=== PATIENT | female | born 1995 | race Caucasian/White ===

== ENCOUNTER 2023-11-29 13:11 | Emergency (ER) | payer BC, SELFPAY ==
--- NOTE | 2023-11-29 13:13 | ED.URI ---
HPI - URI/Sore Throat General Chief Complaint: Upper Respiratory Infection Stated Complaint: SORE THROAT Time Seen by Provider: 11/29/23 14:09 Source: patient and RN notes reviewed Mode of arrival: ambulatory Limitations: no limitations History of Present Illness HPI Narrative: 28-year-old female presents to the [facility] with complaints of a sore throat. Denies fevers. Denies any other symptoms. No treatment prior to arrival Patient states it is worse at night Symptoms for approximately 1 week Related Data Home Medications Medication Instructions Recorded Confirmed sertraline 100 mg tablet 100 mg PO DAILY 11/29/23 11/29/23 spironolactone 100 mg tablet 100 mg PO DAILY 11/29/23 11/29/23 Allergies Allergy/AdvReac Type Severity Reaction Status Date / Time No Known Allergies Allergy Verified 11/29/23 13:24 Review of Systems Review of Systems: All systems reviewed & are unremarkable except as noted in HPI and below Constitutional: Constitutional: Reports no additional constitutional complaints Eyes: Eyes: Reports no additional eye complaints ENT: Reports as per HPI and Reports sore throat Cardiovascular: Cardiovascular: Reports no additional cardiovascular complaints, Denies chest pain and Denies dyspnea Respiratory: Respiratory: Reports no additional respiratory complaints, Denies chest congestion, Denies cough and Denies dyspnea Gastrointestinal: Gastrointestinal: Reports no additional gastrointestinal complaints, Denies abdominal pain, Denies nausea and Denies vomiting Musculoskeletal: Musculoskeletal: Reports no additional musculoskeletal complaints Integumentary/Breasts: Skin/Breast: Reports system reviewed and no additional complaints, except as docu Neurologic: Reports system reviewed and no additional complaints, except as documented Psychiatric: Psychiatric: Reports no additional psychiatric complaints Allergic/Immunologic: Allergic/Immunologic: Reports no additional allergic/immunologic complaints PMFSH Comments At the time of my signature, I reviewed and agree with the nursing past medical, surgical, social, and family history. There is no relevant family history pertinent to the patient complaint. Exam Const: General: cooperative, healthy appearing, comfortable, no acute distress, well developed, alert and well nourished Nutritional Appearance: well nourished Orientation/consciousness: patient oriented x3 Limitations: no limitations HENMT: Head: normal to inspection Ears: hearing grossly normal bilaterally, external ears normal, TM's normal bilaterally, EAC's normal, mastoids normal and no periauricular adenopathy Face/Nose/Sinus: Normal external nose present, Normal nares present, Normal nasal mucous membranes and turbinates present, normal facial exam and face symmetric Face and sinus: normal facial exam and face symmetric Mouth: Yes Normal oral and palatal mucosa present, Yes lip normal and Yes moist mucous membranes Throat: posterior oropharynx normal, uvula midline and no uvular edema Eyes: General: appearance normal, both eyes and all related structures Alignment and Position: alignment normal Periorbital: periorbital findings normal Pupils: Equal, round and reactive pupils present EOM: EOMs intact bilaterally Neck: Neck: normal visual inspection, full ROM, no lymphadenopathy and no meningeal signs Chest: Chest palpation & inspection: normal inspection of the chest Resp: Effort & Inspection: normal respiratory effort and able to speak in complete sentences Auscultation: clear to auscultation bilaterally, no crackles, no rales, no rhonchi and no wheezes Cardio: Rate: regular rate Rhythm: regular rhythm Back/Spine/Pelvis: Cervical Spine: cervical ROM normal Skin: General skin exam: normal color and no rashes or lesions noted Lesions: no lesions Rashes: no rashes Wounds: no wounds Neuro: General: patient oriented x3, gait normal, tone normal, moves all extremities and no meni
[2023-11-29 13:31] VITALS: BP 90/66; PULSE 86; RESP 16; TEMP 37; O2SAT 98
== END 2023-11-29 14:19 | disposition home or self-care (01) ==
PROVIDERS: Emergency Provider Nurse Practitioner
DX: J02.9 Acute pharyngitis, unspecified (principal)
CPT/HCPCS: 87081; 87880; 99213; G0463

== ENCOUNTER 2024-08-25 10:21 | Emergency (ER) | payer BC, SELFPAY ==
--- NOTE | 2024-08-25 10:33 | ED.URI ---
HPI - URI/Sore Throat General Chief Complaint: Upper Respiratory Infection Stated Complaint: Cough Time Seen by Provider: 08/25/24 10:33 Source: patient Mode of arrival: ambulatory Limitations: no limitations History of Present Illness HPI Narrative: 29-year-old female presents with complaint of cough, chest congestion for 1 week. Reports over the past several days she has had chest pain with coughing and shortness of breath with exertion. Afebrile. Reports that her son was diagnosed with pneumonia last week. All systems reviewed and negative except as noted above. Related Data Home Medications Medication Instructions Recorded Confirmed sertraline 100 mg tablet 100 mg PO DAILY 11/29/23 11/29/23 spironolactone 100 mg tablet 100 mg PO DAILY 11/29/23 11/29/23 Allergies Allergy/AdvReac Type Severity Reaction Status Date / Time No Known Allergies Allergy Verified 11/29/23 13:24 Review of Systems Review of Systems: CONSTITUTIONAL: Denies fever, chills, or sweats. EYES: Denies visual changes, redness, or discharge. ENT: Denies rhinorrhea, congestion, sore throat, or otalgia. CARDIOVASCULAR: Denies chest pain, palpitations, or edema. RESPIRATORY: Reports cough, chest congestion, dyspnea with exertion GASTROINTESTINAL: Denies abdominal pain, nausea, vomiting, or diarrhea. GENITOURINARY: Denies dysuria or hematuria. SKIN: Denies rash or itching. MUSCULOSKELETAL: Denies back pain, joint pain, or myalgia. NEUROLOGIC: Denies headache, numbness, or weakness. PSYCHIATRIC: Denies anxiety or depression. All other systems reviewed are negative, except as documented in HPI. PMFSH Comments At time of signature, agree with nursing past medical, surgical, social and family history. There is no relevant family history pertinent to the presenting complaint. Exam Narrative: GENERAL: This is a well-nourished, well-developed patient, in no apparent distress. HEAD: normocephalic, atraumatic. EYES: PERRL. Sclera clear/white. Vision is grossly intact. EARS: External ears normal, auditory canals clear and without drainage, TMs normal without perforation. Hearing grossly intact. NOSE: External nose normal with no obvious nasal discharge, nares without redness, no rhinorrhea. THROAT: Mucous membranes moist, posterior pharynx clear. NECK: Neck supple, non-tender without lymphadenopathy, masses or thyromegaly. CARDIOVASCULAR: Regular rate and rhythm without murmurs, gallops, or rubs. RESPIRATORY: Crackles to left upper lung field otherwise clear. Breath sounds equal bilaterally. No wheezes, rales, or rhonchi. SKIN: warm, Dry, intact with no suspicious lesions or rash, good texture and turgor. NEURO: awake, alert, and oriented to person, place and time. There were no obvious focal neurologic abnormalities. EXTREMITIES: No joint tenderness, effusion, or edema noted. Course Course Level of Care: Express Care Visit Vital Signs Vital signs: Vital Signs Temperature 36.4 C 08/25/24 10:35 Pulse Rate 71 08/25/24 10:35 Respiratory Rate 15 08/25/24 10:35 Blood Pressure 99/83 L 08/25/24 10:35 Pulse Oximetry 99 08/25/24 10:35 Oxygen Delivery Room Air 08/25/24 10:35 Temperature 36.4 C 08/25/24 10:35 Pulse Rate 71 08/25/24 10:35 Respiratory Rate 15 08/25/24 10:35 Blood Pressure 99/83 L 08/25/24 10:35 Pulse Oximetry 99 08/25/24 10:35 Oxygen Delivery Room Air 08/25/24 10:35 Reviewed MDM - URI/Sore Throat MDM Narrative Medical decision making narrative: Will treat patient for pneumonia with antibiotic due to lung sounds auscultation and pneumonia exposure. Patient agrees with plan of care. Patient is aware of diagnosis, understands and agrees to treatment plan. Anticipatory guidance given. Patient agrees to follow-up as directed and is aware of reasons to seek care at the emergency department. Portions of this record may have been created with voice recognition software Differential Diagnosis Differential diagnosis: Likely upper respiratory infection, sinusitis, viral infection and other (Pneumonia exposure) Discharge Plan Discharge Clinical Impression: Cough, Pneumonia exposure Patient Disposition: Home, Self-Care Condition: Stable Instructions: Antibiotic Form, Pneumonia (ED) Additional Instructions: Take medications as prescribed. Taking [id number] medication to treat her symptoms such as Mucinex DM. Take Tylenol or ibuprofen every 6-8 hours as needed for pain and fever. Drink plenty of water and rest. Follow-up your primary care physician if symptoms are not improving. Prescriptions: New azithromycin 250 mg tablet See Rx Instructions .ROUTE .COMPLEX Qty: 6 0RF Rx Instructions: For 250 mg dose pack: take 500 mg today (day 1), then 250 mg for 4 days (days 2-5) No Action spironolactone 100 mg tablet 100 mg PO DAILY sertraline 100 mg tablet 100 mg PO DAILY Follow-up/Referrals: PHYSICIAN,[employer]IN[employer] [Primary Care Provider] - Time of Disposition: 10:40
[2024-08-25 10:35] VITALS: BP 99/83; PULSE 71; RESP 15; TEMP 36.4; O2SAT 99
== END 2024-08-25 10:45 | disposition home or self-care (01) ==
PROVIDERS: Emergency Provider Nurse Practitioner Family
DX: R05.9 Cough, unspecified (principal); Z20.89 Contact with and (suspected) exposure to other communicable diseases
CPT/HCPCS: 99213; G0463

== ENCOUNTER 2025-06-24 15:52 | Emergency (ER) | payer BC, SELFPAY ==
--- NOTE | 2025-06-24 15:56 | ED_ITS ---
HPI - General Adult General Chief complaint: Upper Respiratory Infection Stated complaint: SINUS CONGESITON/SORE THROAT Source: patient Mode of arrival: ambulatory Limitations: no limitations History of Present Illness HPI narrative: Pt is a 30 y/o female presenting with c/o sore throat, postnasal drip, fatigue, rhinorrhea, congestion, sinus pressure. Sx began 2 days ago. Reports sore throat last week that resolved. No known direct exposure to COVID, flu, PNA, strep. No tx initiated [employer]. No additional complaints. Related Data Home Medications ?Medication ?Instructions ?Recorded ?Confirmed ?Last Taken ?Type sertraline 100 mg tablet 100 mg PO DAILY 11/29/2311/21 Unknown History spironolactone 100 mg tablet 100 mg PO DAILY 11/29/23 11/29/23 Unknown History bupropion HCl 150 mg 24 hr tablet, mg PO 06/24/25 Unk nown History extended release escitalopram oxalate 10 mg tablet mg 06/24/25 Unknown History Allergies Allergy/AdvReac Type Severity Reaction Status Date / Time No Known Allergies Allergy Verified 06/24/25 15:57 Review of Systems Review of Systems: CONSTITUTIONAL: Denies body aches, fever, chills, or sweats. EYES: Denies visual changes, redness, or discharge. ENT: reports rhinorrhea, congestion, sore throat, denies otalgia. CARDIOVASCULAR: Denies chest pain, palpitations, or edema. RESPIRATORY: Denies cough or dyspnea. GASTROINTESTINAL: Denies abdominal pain, nausea, vomiting, or diarrhea. GENITOURINARY: Denies dysuria or hematuria. SKIN: Denies rash, itching, or wounds. MUSCULOSKELETAL: Denies back pain, joint pain, or myalgia. NEUROLOGIC: Denies headache, numbness, tingling, or weakness. PSYCH: Denies depression or anxiety. All systems reviewed & are unremarkable except as noted in HPI and below Exam Narrative: GENERAL: Well-appearing, well-nourished, and in no acute distress. HEAD: Normocephalic, atraumatic. EYES: EOMI. No redness or drainage. Conjunctivae normal. ENT: Mucous membranes pink and moist. Nares clear. No rhinorrhea. TMs normal bilaterally. Throat normal. Uvula midline. NECK: Normal AROM. Supple. No lymphadenopathy. CHEST: No respiratory distress. Clear to auscultation. HEART: Regular rate and rhythm. No murmur appreciated. Normal peripheral pulses. ABDOMEN: Soft, nontender, nondistended, normal active bowel sounds. MUSCULOSKELETAL: No bony tenderness. EXTREMITIES: Normal range of motion. No edema. SKIN: Warm, dry, no rash. Capillary refill normal. Normal skin turgor. NEURO: No focal deficits. Alert and oriented x3. Gait steady. PSYCH: Normal affect. No signs of depression or anxiety. HENMT: Face and sinus: sinuses nontender Course Course Level of Care: Express Care Visit Vital Signs Vital signs: Vital Signs Temperature 97.5 F L 06/24/25 16:00 Pulse Rate 84 06/24/25 16:00 Respiratory Rate 16 06/24/25 16:00 Blood Pressure 107/76 06/24/25 16:00 Pulse Oximetry 100 06/24/25 16:00 Temperature 97.5 F L 06/24/25 16:00 Pulse Rate 84 06/24/25 16:00 Respiratory Rate 16 06/24/25 16:00 Blood Pressure 107/76 06/24/25 16:00 Pulse Oximetry 100 06/24/25 16:00 Medical Decision Making Vital Signs Vital Signs: Vital Signs Temperature 97.5 F L 06/24/25 16:00 Pulse Rate 84 06/24/25 16:00 Respiratory Rate 16 06/24/25 16:00 Blood Pressure 107/76 06/24/25 16:00 Pulse Oximetry 100 06/24/25 16:00 Temperature 97.5 F L 06/24/25 16:00 Pulse Rate 84 06/24/25 16:00 Respiratory Rate 16 06/24/25 16:00 Blood Pressure 107/76 06/24/25 16:00 Pulse Oximetry 100 06/24/25 16:00 Lab Data Lab results reviewed: Yes I reviewed the patient's lab results. Labs: Lab Results 06/24/25 Range/Units 16:19 POC Influenza A Ag Negative (Negative) POC Influenza B Ag Negative (Negative) POC SARS CoV-2 Ag Negative (Negative) Discharge Plan Discharge Clinical Impression: Upper respiratory infection Qualifiers: URI type: acute nasopharyngitis (common cold) Qualified Code(s): J00 - Acute nasopharyngitis [common cold] Patient Disposition: Home Condition: Stable Instructions: Antibiotic Form Additional Instructions: Go straight to ER should your symptoms become worse or should any new symptoms develop Patient Language: Citizen Of [place] Prescriptions: New prednisone 20 mg tablet 60 mg PO DAILY Qty: 15 0RF No Action escitalopram oxalate 10 mg tablet bupropion HCl 150 mg tablet extended release 24 hr PO spironolactone 100 mg tablet 100 mg PO DAILY sertraline 100 mg tablet 100 mg PO DAILY Follow-up/Referrals: Beltran Luciano MD [Primary Care Provider, [facility]] - 06/25/25 Time of Disposition: 16:26
[2025-06-24 16:00] VITALS: BP 107/76; PULSE 84; RESP 16; TEMP 36.4; O2SAT 100
[2025-06-24 16:21] LABS: EDCOVIDSCREEN Negative (Negative); EDINFLUASCREEN Negative (Negative); EDINFLUBSCREEN Negative (Negative)
== END 2025-06-24 16:28 | disposition home or self-care (01) ==
PROVIDERS: Emergency Provider Registered Nurse; PCP Emergency Medicine
DX: J00 Acute nasopharyngitis [common cold] (principal); Z79.899 Other long term (current) drug therapy; Z20.822 Contact with and (suspected) exposure to COVID-19
CPT/HCPCS: 87426; 87804; 99213; G0463